=== PATIENT | female | born 1980 | race Two or more races ===

== ENCOUNTER 2024-11-24 03:13 | Emergency (ER) | payer MEDICAID ==
[~2024-11-24] VITALS: Ht 157.5 cm; Wt 86.4 kg
[2024-11-24 04:18] LABS: Basophils # (auto) 0 10 ^3/uL (0-0.2); Basophils % (auto) 0.4 % (0.0-2.0); Eosinophils # (auto) 0 10 ^3/uL (0-0.8); Eosinophils % (auto) 0.3 % (0.0-7.0); Hematocrit 43.9 % (36.0-46.0); Hemoglobin 15.2 g/dL (12.2-16.2); Lymphocytes # (auto) 0.5 10 ^3/uL (0.4-5.4); Mean Corpuscular Hemoglobin 30.5 pg (28.0-32.0); Mean Corpuscular Hgb Conc. 34.5 g/dL (32.0-36.0); Mean Corpuscular Volume 88.4 fL (80.0-100.0); Monocytes # (auto) 0.5 10 ^3/uL (0-1.3); Monocytes % (auto) 5.9 % (0.0-12.0); Neutrophils # (auto) 7.3 10 ^3/uL (1.6-8.6); Neutrophils % (auto) 87.4 % (37.0-80.0); Nucleated Red Blood Cells % 0.2 %; Platelet Count (auto) 327 10^3/uL (140-450); Red Blood Cells 4.97 10^6/uL (4.0-5.20); Red Cell Distribution Width 13.9 % (11.8-14.3); White Blood Cell 8.3 10^3/uL (4.4-10.8)
[2024-11-24 04:32] LABS: Alanine Aminotransferase 19 U/L (7-40); Albumin 4.6 g/dL (3.2-4.8); Alkaline Phosphatase 94 U/L (46-116); Anion Gap 9 (5-15); Aspartate Aminotransferase 19 U/L (13-40); BUN/Creatinine Ratio 12.2 (10.0-20.0); Bilirubin, Total 0.3 mg/dL (0.2-1.0); Blood Urea Nitrogen 9 mg/dL (9-23); Calcium 9.7 mg/dL (8.7-10.4); Carbon Dioxide 23 mmol/L (20-31); Chloride 105 mmol/L (98-107); Potassium 3.9 mmol/L (3.5-5.1); Sodium 137 mmol/L (136-145); Total Protein 7.5 g/dL (5.7-8.2)
[2024-11-24 04:34] LABS: Glucose 112 mg/dL (74-106)
--- NOTE | 2024-11-24 05:33 | ED.PDOC ---
History of Present Illness HPI Comments 44 y/o F, with a history of IUD, kidney stones and UTI's, is BIBA for c/o vaginal, abdominal, back, and bilateral leg pain, odorous vaginal discharge, nausea, diarrhea, fever, and chills, today. Patient endorses on having symptoms, intermittently, for the past 3x weeks, that has been worsening since. Patient comments on being seen and evaluated at [facility] emergency department for symptoms and being diagnosed with a UTI and discharge with antibiotics and naproxen, which she reports on having no improvement or relief with use. She also reports on having irritation to the surface of her urethra that has been ongoing following her injury she had many years ago. Patient r светлана reports painful intercourse. She denies having any vomiting, vaginal bleeding, constipation, or other associated symptoms or modifiers at this time. Chief Complaint: Pelvic Pain Time Seen by MD: 04:20 Reviewed Notes: Nurses Notes, Mat Inspector Notes, Medications, Allergies Allergies: Coded Allergies: NO KNOWN ALLERGIES (Unverified , 11/24/24) Home Meds Active Scripts Metronidazole (Flagyl) 500 Mg Tab, 1 TAB PO BID, #14 TAB Prov:KIP MINER MD 11/24/24 Ibuprofen (Ibuprofen) 600 Mg Tab, 600 MG PO TIDPRN PRN for 5 Days, #15 TAB Prov:KIP MINER MD 11/24/24 Acetaminophen (Acetaminophen Er) 650 Mg Tab, 650 MG PO TIDPRN PRN for 5 Days, #15 TAB Prov:KIP MINER MD 11/24/24 Information Source: Patient, Emergency Med Personnel Mode of Arrival: EMS Severity: Moderate Timing: Weeks Duration: Since onset Prehospital treatment: 12 Lead EKG, Weaving Supervisor, Other (Zofran 4 mg ODT) Review of Systems: REVIEW OF SYSTEMS: Fever and chills, or fatigue HEENT: No sore throat, no earache, no congestion, no neck pain. Cardiac: No chest pain. No palpitations. Lungs: No shortness of breath, no cough. GI: Abdominal pain, nausea, diarrhea. no vomiting, no constipation, : odorous vaginal discharge with pain. No dysuria, frequency, or urgency. No hematuria. Musculoskeletal: Back pain, bilateral leg pain, no joint swelling, no extremity edema. Skin: No rash, no itching. Neuro: No headache, no dizziness, no weakness Vital Signs Vital Signs Date Time Temp Pulse Resp B/P (MAP) Pulse Ox O2 Delivery O2 Flow Rate FiO2 11/24/24 08:44 83 18 123/74 (90) 93 11/24/24 07:14 101.1 11/24/24 06:50 Room Air* 0 21 Physical Exam General: Awake, alert and oriented. No acute distress. Skin: Skin in warm, dry and intact. Appropriate color for ethnicity. HEENT: The head is normocephalic and atraumatic. Conjunctivae are clear without exudates or hemorrhage. Sclera is non-icteric. EOM are intact. No signs of nystagmus. Eyelids are normal in appearance without swelling or lesions. Oral mucosa is pink and moist Neck: The neck is supple with normal range of motion. No JVD. Cardiac: Heart rate and rhythm are normal. No murmurs, gallops, or rubs are auscultated. Respiratory: No signs of respiratory distress. Lung sounds are clear in all lobes bilaterally without rales, ronchi, or wheezes. Abdominal: Abdomen is soft, Generalized lower pelvic tenderness : (Message Broker Developer present) Copious amount of thin white-yellowish discharge. : Extremities: Upper and lower extremities are atraumatic in appearance without deformity or edema. Neurological: The patient is awake, alert and oriented to person, place, and time with normal speech. Speech is clear. There is no facial asymmetry. Psychiatric: Appropriate mood and affect. Good judgement and insight. No visual or auditory hallucinations. Past Medical History PAST MEDICAL HISTORY: Kidney Stones, UTI'S Past Medical History (Other): Obesity Surgical History: Denies all surgeries TRAFFIC CONTROL SPECIALIST History: Denies all TRAFFIC CONTROL SPECIALIST Hx Family History Family History: Unknown Social History Smoker: Non-Smoker Alcohol: Denies ETOH Use Drugs: Denies Drug Use Lives In: Home Was a procedure done? Was a procedure done?: No Differential Dx Considerations may include: Differential diagnoses considered include: Abdominal aortic aneurysm, [place], esophageal rupture, intestinal obstruction, mesenteric ischemia, perforated viscus or solid organ rupture, CHF with hepatomegaly, pneumonia, abscess, appendicitis, biliary disease, diverticulitis, gastritis, gastroenteritis, hepatitis, hernia, inflammatory bowel disease, pancreatitis, peptic ulcer disease, urinary tract infection, ureteral colic, constipation, GERD, irritable syndrome, abdominal wall pain, nonspecific abdominal pain, herpes zoster. [ ]Also ruptured ectopic , ovarian torsion/cyst, tubo-ovarian abscess, PID, endometriosis, mittelschmerz. X-Ray, Labs, Meds, VS Vital Signs Date Time Temp Pulse Resp B/P (MAP) Pulse Ox O2 Delivery O2 Flow Rate FiO2 11/24/24 08:44 83 18 123/74 (90) 93 11/24/24 07:14 101.1 11/24/24 06:52 100.1 101 22 153/81 (105) 93 100.1 11/24/24 06:50 22 98 Room Air* 0 21 11/24/24 03:25 97.6 104 16 151/92 (111) 98 Lab Test 11/24/24 05:30 11/24/24 04:33 11/24/24 03:58 11/24/24 03:23 Range/Units Vaginal WBC (Wet Prep) Many Vaginal RBC (Wet Prep) Few Vaginal Epithelial Cells (Wet Prep) Few Vaginal Bacteria (Wet Prep) Few Vaginal Trichomonas (Wet Prep) Not present Vaginal Yeast (Wet Prep) None seen Vaginal Clue Cells (Wet Prep) None seen Troponin I High Sensitivity < 3 L </=34 ng/L White Blood Count 8.3 4.4-10.8 10^3/uL Red Blood Count 4.97 4.0-5.20 10^6/uL Hemoglobin 15.2 12.2-16.2 g/dL Hematocrit 43.9 36.0-46.0 % Mean Corpuscular Volume 88.4 80.0-100.0 fL Mean Corpuscular Hemoglobin 30.5 28.0-32.0 pg Mean Corpuscular Hemoglobin Concent 34.5 32.0-36.0 g/dL Red Cell Distribution Width 13.9 11.8-14.3 % Platelet Count 327 140-450 10^3/uL Mean Platelet Volume 7.6 6.9-10.8 fL Neutrophils (%) (Auto) 87.4 H 37.0-80.0 % Lymphocytes (%) (Auto) 6.0 L 10.0-50.0 % Monocytes (%) (Auto) 5.9 0.0-12.0 % Eosinophils (%) (Auto) 0.3 0.0-7.0 % Basophils (%) (Auto) 0.4 0.0-2.0 % Neutrophils # (Auto) 7.3 1.6-8.6 10 ^3/uL Lymphocytes # (Auto) 0.5 0.4-5.4 10 ^3/uL Monocytes # (Auto) 0.5 0-1.3 10 ^3/uL Eosinophils # (Auto) 0 0-0.8 10 ^3/uL Basophils # (Auto) 0 0-0.2 10 ^3/uL Nucleated Red Blood Cells 0.2 % Sodium Level 137 136-145 mmol/L Potassium Level 3.9 3.5-5.1 mmol/L Chloride Level 105 98-107 mmol/L Carbon Dioxide Level 23 20-31 mmol/L Anion Gap 9 5-15 Blood Urea Nitrogen 9 9-23 mg/dL Creatinine 0.74 0.550-1.02 mg/dL Glomerular Filtration Rate Calc 103 >90 mL/min BUN/Creatinine Ratio 12.2 10.0-20.0 Serum Glucose 112 H 74-106 mg/dL Calcium Level 9.7 8.7-10.4 mg/dL Total Bilirubin 0.3 0.2-1.0 mg/dL Aspartate Amino Transferase (AST) 19 13-40 U/L Alanine Aminotransferase (ALT) 19 7-40 U/L Alkaline Phosphatase 94 46-116 U/L Total Protein 7.5 5.7-8.2 g/dL Albumin 4.6 3.2-4.8 g/dL Urine Color Yellow Yellow Urine Clarity Clear Clear Urine pH 6.0 5.0-9.0 Urine Specific [place] 1.033 1.001-1.035 Urine Protein Trace H Negative Urine Ketones 2+ H Negative Urine Blood 1+ H Negative /uL Urine Nitrite Negative Negative Urine Bilirubin Negative Negative Urine Urobilinogen Normal Negative mg/dL Urine Leukocyte Esterase 2+ Negative /uL Urine RBC 51 0 - 4 /hpf Urine Microscopic WBC 3 0-5 /HPF Urine Squamous Epithelial Cells Few <5 /hpf Urine Bacteria None seen None Seen /hpf Urine Mucus Few None Seen Urine Glucose Normal Normal mg/dL Chlamydia trachomatis (AMARILIS) Pending Neisseria gonorrhoeae (AMARILIS) Pending Current Medications Medications (Trade) Dose Ordered Sig/Dalila Route Start Time Stop Time Status Last Admin Fluconazole (Diflucan Tablet) 150 mg ONCE ONCE PO 11/24/24 06:15 11/24/24 06:16 DC 11/24/24 06:44 Acetaminophen (Tylenol Tablet) 650 mg ONCE ONCE PO 11/24/24 07:15 11/24/24 07:16 DC 11/24/24 07:14 Acetaminophen/ Hydrocodone Bitart ([place] 7.5/325MG Tab) 1 tab ONCE ONCE PO 11/24/24 07:45 11/24/24 07:46 DC 11/24/24 08:00 Time of 1ST Reevaluation: 04:50 Reevaluation 1ST: Unchanged Patient Education/Counseling: Treatment, Need For Follow Up Family Education/Counseling: No Family Present Departure 1 Departure Time of Disposition: 06:09 Impression: Primary Impression: Pelvic pain Additional Impression: Vaginitis Disposition: HOME / SELF CARE / HOMELESS Condition: Stable Additional Instructions: ED DISCHARGE INSTRUCTIONS Instructions: Please read all instructions provided in this packet carefully. Although you have been discharged from the Emergency Department, this does not mean that you have a "clean bill of health". No definitive diagnosis for your symptoms has been made today. It is possible that you are in the process of developing a serious illness. This is why you must return to the ED without fail if any new or worsening symptoms (especially if your symptoms include chest pain, trouble breathing, abdominal pain, fever, headache, confusion, trouble seeing, or trouble walking) It is also very important that you see a primary care doctor within the next 3-5 days to follow up. Keep upcoming appointment with your patching machine operator. We will call you with the results of your pending tests if you need further treatment. If you are unable to get an appointment, return to the ED for re-evaluation. Vaginitis: Care Instructions Table of Contents Overview How can you care for yourself at home? When should you call for help? Credits Female pelvic organs Overview Vaginitis is soreness or infection of the vagina. This common problem can cause itching and burning. And it can cause a change in vaginal discharge. Sometimes it can cause pain during sex. Vaginitis may be caused by bacteria, yeast, or other germs. Some infections that cause it are caught from a sexual partner. Bath products, spermicides, and douches can irritate the vagina too. This problem can also happen during and after menopause. A drop in estrogen levels during this time can cause dryness, soreness, and pain during sex. Your doctor can give you medicine to treat vaginitis. And home care may help you feel better. For certain types of infections, your sex partner(s) must be treated too. Follow-up care is a torres part of your treatment and safety. Be sure to make and go to all appointments, and call your doctor if you are having problems. It's also a good idea to know your test results and keep a list of the medicines you take. How can you care for yourself at home? Take your medicines exactly as prescribed. Call your doctor if you think you are having a problem with your medicine. Ask your doctor if your sex partner(s) also needs treatment. Do not eat or drink anything that has alcohol if you are taking metronidazole (Flagyl). Wash your vulva daily with water. You also can use a mild, unscented soap if you want. Do not use scented bath products. And do not use vaginal sprays or douches. Change out of wet or damp clothes as soon as possible. Wear cotton underwear. And avoid tight clothing that could increase moisture. Put a washcloth soaked in cool water on the area to relieve itching. Or you can take cool baths. If you have dryness because of menopause, use estrogen cream or pills that your doctor prescribes. Ask your doctor about when it is okay to have sex. Use a personal lubricant before sex if you have dryness. Examples are Astroglide, K-Y Jelly, and Wet Lubricant Gel. When should you call for help? Call your doctor now or seek immediate medical care if: You have a fever. You have new or increased pain in your vagina or pelvis. You have new or worse vaginal itching or discharge. Watch closely for changes in your health, and be sure to contact your doctor if: You have bleeding other than your period. You do not get better as expected. Credits for Vaginitis: Care Instructions Current as of: January 14, 2024 Author: [employer] Staff Clinical Review Board All [employer] education is reviewed by a team that includes physicians, nurses, advanced practitioners, registered dieticians, and other healthcare professionals. e-Prescriptions Metronidazole (Flagyl) 500 Mg Tab 1 TAB PO BID, #14 TAB Prov: KIP MINER MD 11/24/24 Ibuprofen (Ibuprofen) 600 Mg Tab 600 MG PO TIDPRN PRN for 5 Days, #15 TAB Prov: KIP MINER MD 11/24/24 Acetaminophen (Acetaminophen Er) 650 Mg Tab 650 MG PO TIDPRN PRN for 5 Days, #15 TAB Prov: KIP MINER MD 11/24/24 Comments 44 year old female with several days of pelvic pain. Will treat empirically for bacterial vaginosis. GC/Chlamydia pending. Critical Care Note Critical Care Time?: No Stability Stability form required: No Heart Score Heart Score: Heart Score Response (Comments) Value History N/A 0 EKG N/A 0 Age N/A 0 Risk Factors N/A 0 Troponin N/A 0 Total 0 I personally scribed for KIP MINER MD ([email or web address]) on 11/24/24 at 05:33. Electronically submitted by Florentino Mota ([email or web address]). I personally scribed for KIP MINER MD ([email or web address]) on 11/24/24 at 05:38. Electronically submitted by Florentino Mota ([email or web address]). KIP MINER MD Nov 24, 2024 05:33
[2024-11-24 05:55] LABS: Urine Bacteria None Seen /hpf (None Seen)
[2024-11-24] MEDS ORDERED: IBUP-1454 PO (06:13)
[2024-11-24] MEDS ORDERED: ACET650T12 PO (06:13)
[2024-11-24] MEDS ORDERED: METR-344 PO (06:14)
[2024-11-24 06:25] LABS: Urine Blood 1+ /uL (Negative); Urine Clarity Clear (Clear); Urine Color Yellow (Yellow); Urine Mucus FEW (None Seen); Urine Protein, UAD TRACE (Negative); Urine Specific Gravity 1.033 (1.001-1.035); Urine Squamous Epithelial Cell FEW /hpf (<5); Urine Urobilinogen Normal (Negative); Urine WBC 3 /HPF (0-5)
--- NOTE | 2024-11-24 06:32 | DVH ---
INDICATION: Pelvic pain TECHNIQUE: Multiple real-time grayscale transabdominal sonographic images along with color and duplex Doppler of the uterus and ovaries were obtained. COMPARISON: None FINDINGS: The uterus measures 10.5 x 5.7 x 4.5 cm. The uterus is homogenous in echotexture. Intrauter ine device is present. The right ovary measures 2.7 x 1.7 x 2.2 cm. The left ovary measures 2.2 x 1.7 x 1.6 cm. Subsequent color and duplex Doppler interrogation of the ovaries demonstrated symmetric vascular flow to both ovaries. No free fluid in the cul-de-sac. IMPRESSION: 1. Intrauterine device present in appropriate position. No acute abnormality
[2024-11-24] MEDS: FLUCONAZOLE 100 MG TAB PO ONE (06:44)
[2024-11-24 06:50] VITALS: RESP 22; O2SAT 98
[2024-11-24 07:14] VITALS: TEMP 101.1
[2024-11-24] MEDS: ACETAMINOPHEN 325 MG TAB PO ONE (07:14)
[2024-11-24 07:16] LABS: Vaginal Trichomonas Not Present
[2024-11-24 07:17] LABS: Vaginal Bacteria Few; Vaginal Clue Cells None Seen; Vaginal Epithelial Cells Few
[2024-11-24] MEDS: HYDROcodone-ACET 7.5/325MG TAB PO ONE (08:00)
[2024-11-24 08:44] VITALS: BP 123/74; PULSE 83; RESP 18; O2SAT 93
[2024-11-26 06:07] LABS: Chlamydia Trachomatis, NAA Negative (Negative); Neisseria gonorrhoeae, NAA Negative (Negative)
== END 2024-11-24 08:49 | disposition home or self-care (01) ==
LOC: EDBD 03:13 → ER 03:13 → EDUNIT# 03:13 → ER 08:49
DX: N76.0 Acute vaginitis (principal); R10.2 Pelvic and perineal pain; Z79.899 Other long term (current) drug therapy
CPT/HCPCS: 36415; 76856; 80053; 81001; 84484; 85025; 87210